=== PATIENT | female | born 1945 | race Caucasian/White ===

== ENCOUNTER 2017-11-30 10:22 | Emergency (ER) | payer BC, MEDICARE | END 2017-11-30 12:24 | disposition home or self-care (01) | LOC: PHED 10:22 | DX: S02.2XXA Fracture of nasal bones, initial encounter for closed fracture (principal); S01.81XA Laceration without foreign body of other part of head, initial encounter; I67.9 Cerebrovascular disease, unspecified; W01.0XXA Fall on same level from slipping, tripping and stumbling without subsequent striking against object, initial encounter; Z86.73 Personal history of transient ischemic attack (TIA), and cerebral infarction without residual deficits | CPT/HCPCS: 12011; 70450; 70486; 99284-25 ==